=== PATIENT | female | born 1960 | race Caucasian/White ===

== ENCOUNTER 2016-05-28 11:29 | Inpatient (IN) | payer OTHER ==
[~2016-05-28] VITALS: Ht 167.6 cm; Wt 100.2 kg
--- NOTE | ~2016-05-28 | EKG ---
[address] [place] [address] ELECTROCARDIOGRAM REPORT Name: YASH THOMAS [id number] Admission: 05/28/16 Attend Phys: Discharge: Date of : 56 Report #: [id number] THIS REPORT FOR: //name// [facility] ED Test Date: 2016-05-28 Test Time: 11:48:13 Pat Name: YASH THOMAS Department: Room: Gender: F Bilingual Customer Service: Ok GALLARDO : 1960 Requested By: Sea Tomlinson Order Number: [id number] MD: Melecio Lezama Measurements Intervals [place] Rate: 79 P: 46 [place]: 163 QRS: -3 QRSD: 117 T: 31 QT: 439 QTc: 504 Interpretive Statements Sinus rhythm Left ventricular hypertrophy Electronically Signed On 05-28-2016 13:40:55 CDT by Melecio Lezama [email or web address] <ELECTRONICALLY SIGNED> By: Melecio Lezama MD 05/28/16 1340 1148 [id number] Melecio Lezama MD /EPI
--- NOTE | ~2016-05-28 | HC ---
[facility] [place] [address] [place] [address] CONSULTATION Name: WILLIAMYASH Room #: 541-P ADM IN M.R.#: [id number] Admission: 05/28/16 Attend Phys: Mikel Jenkins DO Discharge: Date of : 56 Report #: [id number] THIS REPORT FOR: //name// CC: FAM unknown Mikel Jenkins DO HISTORY OF PRESENT ILLNESS: The patient is a 55-year-old female who reported increasing symptoms of nausea, vomiting, diarrhea and abdominal pain beginning earlier this morning. She does report fevers and chills. She is actually afebrile here. She is shaking at this time. She also complains of diffuse abdominal pain. She denies any blood in her stools or hematemesis. She denies any chest pain or shortness of breath currently. She underwent an EGD and colonoscopy by my partner Dr. Dilan Hooper in December of last year, both of which were normal. A CT scan of the abdomen and pelvis was performed today through the Emergency Room, which was unremarkable. No acute abnormalities were noted. She does have an elevated white count of 15,000. Her weight has been stable. ALLERGIES: No known drug allergies. MEDICATIONS: Amlodipine. PAST MEDICAL HISTORY: History of CVA with 3 TIAs reportedly hypertension, history of hepatitis C. SOCIAL HISTORY: She denies any tobacco or alcohol use. FAMILY HISTORY: Negative for colon cancer or inflammatory bowel disease. REVIEW OF SYSTEMS: As per HPI. PHYSICAL EXAMINATION: VITAL SIGNS: Temperature is 97.9, pulse 88, blood pressure 168/90, respiratory rate is 17. GENERAL: She is alert and oriented x 3 in no acute distress, although she is shaking somewhat. It appears that she may be chewing at this point. HEENT: Sclerae nonicteric. Oropharynx clear. NECK: Supple without lymphadenopathy. CARDIOVASCULAR: Regular rate and rhythm. CHEST: Clear to auscultation anteriorly bilaterally. ABDOMEN: Soft. She is mildly tender diffusely. Nondistended, normoactive bowel sounds. EXTREMITIES: No cyanosis, clubbing or edema. LABORATORY DATA: Sodium 142, potassium 3.0, chloride 106, bicarbonate 24, BUN 10, creatinine 0.8, glucose 136, AST is 13, lipase 63, total bilirubin 0.3, [address] [address] CONSULTATION Name: YASH THOMAS Room #: 1-[facility] IN .R.#: [id number] Admission: 05/28/16 Attend Phys: Mikel Jenkins DO Discharge: Date of : 56 Report #: [id number] alkaline phosphatase 75, ALT is 12, albumin 3.6, troponin less than 0.04. WBC is 15.7, hemoglobin is 13.4, platelet count is 271. ASSESSMENT AND PLAN: 1. Nausea, vomiting, diarrhea and abdominal pain. She does have a mild elevation in her white count. This may be an infectious gastroenteritis. Was sent out for stool studies next. If the patient began having fever, would recommend starting antibiotics. Otherwise, agree with current regimen of PPI therapy and Bentyl, which was helpful back in December as well as supportive care including pain meds and antinausea medications. Her CAT scan was normal. Her endoscopies, which was less than 6 months ago were normal at that time. 2. Possible history of hepatitis C, currently liver function tests are normal. Thank you for allowing me to participate in her care. By: [id number] Lemuel Leyva MD /nt
[~2016-05-28 11:29] MED LIST: AMLODIPINE BESY10 MG PO; BENTYL 10 MG CA10 M1 PO; CIPROFLOXACIN500 M1 PO; DIAZEPAM; LABETALOL; NORCO 5-325 TA1 EACH PO; PHENERGAN 25 MG25 M1 PO; PHENERGAN50 MG RC; POTASSIUM20 PO; PROMS25 WY RECTAL; PROTONIX 440 MG/VIA2 IV PUSH; PYRIDIUM200 MG PO; SLOW-MAG64 MG PO; ZOFRAN ODT4 MG PO; ZOLOFT
[2016-05-28 11:53] LABS: URINE BILIRUBIN NEGATIVE (Negative); URINE BLOOD 2+ (Negative); URINE COLOR YELLOW; URINE GLUCOSE-RANDOM* NEGATIVE (Negative); URINE KETONES NEGATIVE (Negative); URINE NITRITE NEGATIVE (Negative); URINE PROTEIN (DIPSTICK) TRACE (Negative); URINE UROBILINOGEN 0.2 E.U./dl (0.2-1.0)
[2016-05-28 12:01] LABS: BACTERIA 1-9 Few /HPF (None Seen); CASTS None Seen /LPF (None Seen); CRYSTALS None Seen /LPF (None Seen); SQUAMOUS 0-3 Few /LPF (0-3); URINE WBC 0-5 Rare /HPF (0-5)
[2016-05-28 12:58] LABS: ABSOLUTE NEUTROPHILS 12.2 thou/uL (1.4-8.2); BASOPHILS 0.5 % (0.0-2.0); HEMATOCRIT 40.3 % (37.0-47.0); HEMOGLOBIN 13.4 gm/dL (12.0-15.0); LYMPHOCYTES 15.3 % (24.0-44.0); MCH 29.5 pg (26.0-34.0); MCHC 33.3 g/dL (28.0-37.0); MCV 88.7 fL (80.0-100.0); MONOCYTES 6.6 % (1.0-8.0); PLATELET COUNT 271 thou/uL (150-400); POLYS 77.6 % (36.0-66.0); RBC 4.54 mil/uL (4.20-5.00); RDW 15.3 % (10.5-14.5); WBC 15.7 thou/uL (4.0-11.0)
[2016-05-28 13:00] LABS: MANUAL DIFF NO
[2016-05-28 13:09] LABS: ANION GAP 12 mmol/L (7-16); BUN 10 mg/dL (7-18); CALCIUM 8.7 mg/dL (8.5-10.1); CHLORIDE 106 mmol/L (98-107); CO2 24 mmol/L (21-32); CREATININE 0.8 mg/dL (0.6-1.3); GLUCOSE 136 mg/dL (70-99); SODIUM 142 mmol/L (136-145)
[2016-05-28 13:15] LABS: ALBUMIN 3.6 g/dL (3.4-5.0); ALKALINE PHOSPHATASE 75 U/L (46-116); DIRECT BILIRUBIN < 0.1 mg/dL (<0.1-0.3); SGOT 13 U/L (15-37); SGPT 12 U/L (30-65); TOTAL BILIRUBIN 0.3 mg/dL (<0.1-1.0); TOTAL PROTEIN 7.7 g/dL (6.4-8.2); TROPONIN-I < 0.04 ng/mL (<0.04-0.07)
[2016-05-28 15:08] VITALS: BP 168/98
[2016-05-28 16:30] VITALS: BP 176/97
[2016-05-28 20:45] VITALS: BP 181/108
[2016-05-29 04:48] LABS: ABSOLUTE NEUTROPHILS 12.6 thou/uL (1.4-8.2); BASOPHILS 0.6 % (0.0-2.0); EOSINOPHILS 0.1 % (0.0-3.0); HEMATOCRIT 43.5 % (37.0-47.0); HEMOGLOBIN 14.5 gm/dL (12.0-15.0); LYMPHOCYTES 20.8 % (24.0-44.0); MCH 29.3 pg (26.0-34.0); MCHC 33.4 g/dL (28.0-37.0); MCV 87.6 fL (80.0-100.0); MONOCYTES 5.7 % (1.0-8.0); PLATELET COUNT 302 thou/uL (150-400); POLYS 72.8 % (36.0-66.0); RBC 4.96 mil/uL (4.20-5.00); RDW 15.7 % (10.5-14.5); WBC 17.3 thou/uL (4.0-11.0)
[2016-05-29 04:50] LABS: MANUAL DIFF NO
[2016-05-29 05:26] LABS: CALCIUM 9.4 mg/dL (8.5-10.1)
[2016-05-29 07:25] VITALS: BP 155/106
[2016-05-29 17:00] VITALS: BP 151/108
[2016-05-29 21:06] VITALS: BP 126/82
[2016-05-30 05:05] LABS: BASOPHILS 0.4 % (0.0-2.0); EOSINOPHILS 0.1 % (0.0-3.0); HEMATOCRIT 43.4 % (37.0-47.0); HEMOGLOBIN 14.5 gm/dL (12.0-15.0); LYMPHOCYTES 26.2 % (24.0-44.0); MCH 29.4 pg (26.0-34.0); MCHC 33.5 g/dL (28.0-37.0); MCV 87.8 fL (80.0-100.0); MONOCYTES 8.9 % (1.0-8.0); PLATELET COUNT 273 thou/uL (150-400); POLYS 64.4 % (36.0-66.0); RBC 4.94 mil/uL (4.20-5.00); RDW 15.5 % (10.5-14.5); WBC 12.5 thou/uL (4.0-11.0)
[2016-05-30 05:10] LABS: MANUAL DIFF NO
[2016-05-30 08:34] VITALS: BP 130/86
[2016-05-30 14:52] VITALS: BP 128/85
[2016-05-30 20:00] VITALS: BP 136/100
[2016-05-31 04:00] VITALS: BP 137/95
[2016-05-31 05:58] LABS: HEMATOCRIT 41.2 % (37.0-47.0); HEMOGLOBIN 13.7 gm/dL (12.0-15.0); MCH 29.6 pg (26.0-34.0); MCHC 33.3 g/dL (28.0-37.0); MCV 88.7 fL (80.0-100.0); RBC 4.65 mil/uL (4.20-5.00); RDW 15.4 % (10.5-14.5); WBC 9.7 thou/uL (4.0-11.0)
[2016-05-31 06:13] LABS: ALBUMIN 3.2 g/dL (3.4-5.0); CALCIUM 8.6 mg/dL (8.5-10.1); PHOSPHORUS 3.3 mg/dL (2.5-4.9); POTASSIUM 3.5 mmol/L (3.5-5.1)
[2016-05-31 08:00] VITALS: BP 154/94
[2016-05-31] MEDS ORDERED: CIPRO500 MG PO (10:36)
[2016-05-31] MEDS ORDERED: FLAGYL500 MG PO (10:36)
[2016-05-31] MEDS ORDERED: LORTAB 5-325 M1 EACH PO (10:41)
[2016-05-31] MEDS ORDERED: MIRALAX17 GM PO (14:52)
[2016-05-31 14:53] VITALS: BP 154/94
== END 2016-05-31 16:46 | disposition home or self-care (01) | DRG 872 ==
LOC: ER 11:29 → EROBS 14:36 → 4N 14:36 → 5S 15:10 → 4N 05-30 13:50
PROVIDERS: Family Medicine; Hospitalist; Internal Medicine; Nurse Practitioner
PROC: 02HV33Z Insertion of Infusion Device into Superior Vena Cava, Percutaneous Approach (ICD-10-PCS; principal; 2016-05-29)
PROC: B5181ZA Fluoroscopy of Superior Vena Cava using Low Osmolar Contrast, Guidance (ICD-10-PCS; principal; 2016-05-29)
DX: A41.9 Sepsis, unspecified organism (principal); A08.4 Viral intestinal infection, unspecified; I10 Essential (primary) hypertension; F12.90 Cannabis use, unspecified, uncomplicated; D72.829 Elevated white blood cell count, unspecified; B19.20 Unspecified viral hepatitis C without hepatic coma; R31.9 Hematuria, unspecified; Z86.73 Personal history of transient ischemic attack (TIA), and cerebral infarction without residual deficits
CPT/HCPCS: 10086; 10091; 27001

== ENCOUNTER 2016-10-12 15:53 | Inpatient (IN) | payer OTHER ==
[~2016-10-12] VITALS: Ht 167.6 cm; Wt 103.6 kg
--- NOTE | ~2016-10-12 | HC ---
[facility] [place] [address] [place] [address] CONSULTATION Name: YASH THOMAS Siddharth Room #: 455-P [facility] IN .R.#: [id number] Admission: 10/12/16 Attend Phys: Nish Preston Discharge: Date of : 56 Report #: [id number] THIS REPORT FOR: //name// CC: FAM unknown Nish Preston MD DATE OF SERVICE: 10/13/2016 PATIENT OF: Dr. Preston. CHIEF COMPLAINT: This is a very pleasant 56-year-old -[place] female who is well known to us from previous evaluations. We were asked to evaluate the patient for left lower quadrant pain that radiates around into her back associated with nausea, vomiting, diarrhea, chills, and sweats. The patient states that her symptoms began on Tuesday. She had just gone home from the hospital last week and was being treated for a possible diverticulitis and was doing fine for about a week and then her symptoms of left lower quadrant pain returned. PAST MEDICAL HISTORY: Significant for hepatitis C that has been partially treated in the past, hypertension, cerebrovascular accident, transient ischemic attacks, rheumatoid arthritis, colitis, hyperlipidemia, and depression. PAST SURGICAL HISTORY: Significant for an appendectomy and a cholecystectomy. ALLERGIES: No known drug allergies. MEDICATIONS: Prior to this admission include the following: Aspirin, Lipitor, multiple vitamins, Protonix, Phenergan, Zoloft. SOCIAL HISTORY: She smokes about 2 cigarettes per day. She does not drink alcohol. She does smoke marijuana. FAMILY HISTORY: Negative for colon polyps, colon cancer, Crohn's disease and ulcerative colitis. REVIEW OF SYSTEMS: She denies any dysphagia or odynophagia, but she does have gastroesophageal reflux symptoms. She has no history of a hiatal hernia or peptic ulcer disease. Her weight has been stable. Her appetite was generally good until she got sick with this again. She denies any hematemesis, hematochezia or melena. She denies constipation at this time. She has had some diarrhea prior to admission. She complains of pain in the left lower quadrant that radiates around into her mid back. PHYSICAL EXAMINATION: [facility] [address] [place] [address] CONSULTATION Name: WILLIAMYASH Room #: 455-P [facility] IN ..#: [id number] Admission: 10/12/16 Attend Phys: Nish Preston Discharge: Date of : 56 Report #: [id number] GENERAL: Reveals a well-developed, well-nourished, somewhat obese, 56-year-old female in no apparent distress at the time of the examination. She is awake, alert, oriented times 4 and cooperative and pleasant to converse with. VITAL SIGNS: Show a blood pressure of 108/73, temperature is 98.8, pulse 77, respirations are 18. Oxygen saturation is 97% on room air. HEENT: She is normocephalic, atraumatic and anicteric. HEART: Rate and rhythm are regular with a normal S1 and S2. LUNGS: Clear bilaterally. ABDOMEN: Soft, bowel sounds present in all 4 quadrants. There is no palpable organomegaly or mass, although she does not tolerate deep palpation very well. She has some voluntary guarding, but no rebound tenderness. IMAGING DATA: CT scan of the abdomen did not reveal any etiology of her pain. There was no evidence of any acute diverticulitis or colitis. No bowel wall thickening was seen. The appendix is absent. There was some diverticulosis noted, but without any inflammatory changes or obstruction. SIGNIFICANT LABORATORY DATA: Her white count on admission was 12.4 and it came down to 9.9 the next day. Hemoglobin, hematocrit, platelets all are within normal limits. IMPRESSION: 1. Left lower quadrant pain, radiating around into her lower back and midline, probable diverticulitis, but we need to exclude urinary tract infection as well as urolithiasis. 2. Fevers and chills. 3. History of urolithiasis. 4. History of partially treated hepatitis C. She is supposed to start taking soon as an outpatient. 5. Gastroesophageal reflux. 6. Hypertension. 7. History of acute cerebrovascular accident and transient ischemic attack. RECOMMENDATIONS: My recommendations are as follows. 1. I agree with Cipro and the Flagyl. The patient feels a bit better, but is still chilling and having sweating. She has no appetite whatsoever. 2. Proton pump inhibitors for gastroesophageal reflux. 3. EGD and colonoscopy was done last year and did not reveal any abnormalities. If she recovers uneventfully on Cipro and Flagyl, I do not think she needs another colonoscopy at this point. However, if she does not recover fully, then we need to consider repeat colonoscopy. [address] [address] CONSULTATION Name: YASH THOMAS Room #: 455-P [facility] IN M.R.#: [id number] Admission: 10/12/16 Attend Phys: Nish Preston Discharge: Date of : 56 Report #: [id number] Thank you very much once again for allowing me to participate in her care, Dr. Preston. <ELECTRONICALLY SIGNED> By: Milagro Hooper DO 10/14/16 0747 06 0104 Milagro Hooper DO /nt
[~2016-10-12 15:53] MED LIST changes: +CIPRO500 MG PO; +FLAGYL500 MG PO; +LORTAB 5-325 M1 EACH PO; +MIRALAX17 GM PO
[2016-10-12 15:54] VITALS: BP 195/100
[2016-10-12 16:45] LABS: ABSOLUTE NEUTROPHILS 8.8 thou/uL (1.4-8.2); BASOPHILS 1.2 % (0.0-2.0); EOSINOPHILS 0.3 % (0.0-3.0); HEMATOCRIT 41.7 % (37.0-47.0); HEMOGLOBIN 13.7 gm/dL (12.0-15.0); LYMPHOCYTES 22.6 % (24.0-44.0); MCH 29.2 pg (26.0-34.0); MCHC 32.9 g/dL (28.0-37.0); MCV 88.7 fL (80.0-100.0); MONOCYTES 5.4 % (1.0-8.0); PLATELET COUNT 301 thou/uL (150-400); POLYS 70.5 % (36.0-66.0); RDW 15.4 % (10.5-14.5); WBC 12.4 thou/uL (4.0-11.0)
[2016-10-12 16:48] LABS: CREATININE 0.9 mg/dL (0.6-1.0); POTASSIUM 3.7 mmol/L (3.5-5.1)
[2016-10-12 16:51] LABS: MANUAL DIFF NO
[2016-10-12 16:54] LABS: ALBUMIN 3.8 g/dL (3.4-5.0); TOTAL BILIRUBIN 0.3 mg/dL (<0.1-1.0); TOTAL PROTEIN 8.9 g/dL (6.4-8.2)
[2016-10-12 21:29] VITALS: BP 131/85
[2016-10-12 21:30] VITALS: BP 127/68
[2016-10-12] MEDS ORDERED: ASPIR 8181 MG PO (22:25)
[2016-10-12] MEDS ORDERED: MULTIVITAMINS1 EAC7 PO (22:32)
[2016-10-12] MEDS ORDERED: ZOLOFT50 MG PO (22:32)
[2016-10-12] MEDS ORDERED: ATORVASTATIN CA40 MG PO (22:32)
[2016-10-12] MEDS ORDERED: PROTONIX40 M1 PO (22:32)
[2016-10-12 23:10] VITALS: BP 138/87
[2016-10-13 04:05] VITALS: BP 104/53
[2016-10-13 06:05] LABS: HEMOGLOBIN 12.6 gm/dL (12.0-15.0); MCH 29.4 pg (26.0-34.0); MCHC 33.1 g/dL (28.0-37.0); MCV 88.8 fL (80.0-100.0); RBC 4.28 mil/uL (4.20-5.00); RDW 15.5 % (10.5-14.5); WBC 9.9 thou/uL (4.0-11.0)
[2016-10-13 06:19] LABS: CALCIUM 8.3 mg/dL (8.5-10.1); CREATININE 0.9 mg/dL (0.6-1.0)
[2016-10-13 08:23] VITALS: BP 108/73
[2016-10-13 10:00] LABS: URINE BILIRUBIN NEGATIVE (Negative); URINE BLOOD 3+ (Negative); URINE COLOR YELLOW; URINE GLUCOSE-RANDOM* NEGATIVE (Negative); URINE KETONES NEGATIVE (Negative); URINE LEUKOCYTES-REFLEX TRACE (Negative); URINE PROTEIN (DIPSTICK) 2+ (Negative); URINE SPECIFIC GRAVITY >= 1.030 (1.003-1.035)
[2016-10-13 10:12] LABS: CASTS None Seen /LPF (None Seen); CRYSTALS None Seen /LPF (None Seen); SQUAMOUS >10 Many /LPF (0-3); URINE RBC 3-10 Few /HPF (0-2); URINE WBC-REFLEX 0-5 Rare /HPF (0-5)
[2016-10-13 11:51] VITALS: BP 126/86
[2016-10-13 15:38] VITALS: BP 114/74
[2016-10-13 19:28] VITALS: BP 133/88
[2016-10-13 23:37] VITALS: BP 121/88
[2016-10-14 04:05] VITALS: BP 139/94
[2016-10-14 06:06] LABS: ALBUMIN 3.1 g/dL (3.4-5.0); CALCIUM 8.6 mg/dL (8.5-10.1); CREATININE 0.9 mg/dL (0.6-1.0); POTASSIUM 3.2 mmol/L (3.5-5.1); TOTAL BILIRUBIN 0.4 mg/dL (<0.1-1.0); TOTAL PROTEIN 7.4 g/dL (6.4-8.2)
[2016-10-14 07:46] VITALS: BP 137/80
[2016-10-14] MEDS ORDERED: FLAGYL500 MG PO (10:58)
[2016-10-14] MEDS ORDERED: CIPRO250 M1 PO (10:58)
[2016-10-14] MEDS ORDERED: PERCOCET PO (10:59)
[2016-10-14] MEDS ORDERED: AMLODIPINE BESY10 MG PO (10:59)
[2016-10-14] MEDS ORDERED: METOPROLOL SUCC25 M1 PO (10:59)
[2016-10-14 11:49] VITALS: BP 137/80
[2016-10-14 11:52] VITALS: BP 165/103
== END 2016-10-14 14:39 | disposition home or self-care (01) | DRG 872 ==
LOC: ER 15:53 → 4W 19:51 → EROBS 19:51 → 4W 21:31
PROVIDERS: Emergency Medicine; Hospitalist; Nurse Practitioner Family
DX: A41.9 Sepsis, unspecified organism (principal); K57.92 Diverticulitis of intestine, part unspecified, without perforation or abscess without bleeding; I16.0 Hypertensive urgency; I10 Essential (primary) hypertension; M06.9 Rheumatoid arthritis, unspecified; E78.5 Hyperlipidemia, unspecified; F32.9 Major depressive disorder, single episode, unspecified; F17.210 Nicotine dependence, cigarettes, uncomplicated; K21.9 Gastro-esophageal reflux disease without esophagitis; D72.829 Elevated white blood cell count, unspecified; B19.20 Unspecified viral hepatitis C without hepatic coma; Z79.899 Other long term (current) drug therapy; Z86.73 Personal history of transient ischemic attack (TIA), and cerebral infarction without residual deficits; Z86.19 Personal history of other infectious and parasitic diseases; Z90.49 Acquired absence of other specified parts of digestive tract; Z79.82 Long term (current) use of aspirin; Z87.442 Personal history of urinary calculi
CPT/HCPCS: 10045

== ENCOUNTER 2017-04-14 14:04 | Emergency (ER) | payer OTHER ==
[~2017-04-14] VITALS: Ht 167.6 cm; Wt 104.3 kg
--- NOTE | ~2017-04-14 | EKG ---
[place] [address] [address] [place] [address] ELECTROCARDIOGRAM REPORT Name: YASH THOMAS [facility] [id number] Admission: 04/14/17 Attend Phys: Discharge: Date of : 56 Report #: [id number] THIS REPORT FOR: //name// [facility] ED Test Date: 2017-04-14 Test Time: 15:06:00 Pat Name: YASH THOMAS Department: Room: Gender: F Director Of Ancillary Services: [place] : 1960 Requested By: Contreras Bennett Order Number: [id number] MD: Melecio Lezama Measurements Intervals [place] Rate: 88 P: 46 [place]: 160 QRS: -11 QRSD: 106 T: 29 QT: 387 QTc: 469 Interpretive Statements Sinus rhythm Probable left atrial enlargement Baseline wander in lead(s) I,III,aVL Compared to ECG 05/28/2016 11:48:13 Left ventricular hypertrophy no longer present Electronically Signed On 04-14-2017 16:31:07 [employer] by Melecio Lezama [email or web address] <ELECTRONICALLY SIGNED> By: Melecio Lezama MD 04/14/17 1631 1506 1506 Melecio Lezama MD /JENNIFER
[~2017-04-14 14:04] MED LIST changes: +ASPIR 8181 MG PO; +ATORVASTATIN CA40 MG PO; +CIPRO250 M1 PO; +METOPROLOL SUCC25 M1 PO; +MULTIVITAMINS1 EAC7 PO; +PERCOCET PO; +PROTONIX40 M1 PO; +ZOLOFT50 MG PO
[2017-04-14 15:12] LABS: HEMATOCRIT 40.3 % (37.0-47.0); HEMOGLOBIN 13.6 gm/dL (12.0-15.0); MCH 29.1 pg (26.0-34.0); MCHC 33.7 g/dL (28.0-37.0); MCV 86.5 fL (80.0-100.0); RBC 4.66 mil/uL (4.20-5.00); RDW 15.7 % (10.5-14.5); WBC 4.3 thou/uL (4.0-11.0)
[2017-04-14 15:18] LABS: CALCIUM 8.6 mg/dL (8.5-10.1)
[2017-04-14 15:20] LABS: POTASSIUM 2.9 mmol/L (3.5-5.1)
[2017-04-14 15:25] LABS: ALBUMIN 3.4 g/dL (3.4-5.0); TOTAL BILIRUBIN 0.3 mg/dL (<0.1-1.0); TOTAL PROTEIN 7.7 g/dL (6.4-8.2)
[2017-04-14] MEDS ORDERED: ZPAK PO (16:25)
[2017-04-14 19:00] VITALS: BP 148/98
[2017-04-14] MEDS ORDERED: PROMETHAZINE/C118 ML PO (19:01)
[2017-04-14] MEDS ORDERED: OSELB75 PO (19:01)
== END 2017-04-14 19:11 | disposition home or self-care (01) ==
LOC: ER 14:04
PROVIDERS: Emergency Medicine
DX: J98.8 Other specified respiratory disorders (principal); I10 Essential (primary) hypertension; M19.90 Unspecified osteoarthritis, unspecified site; Z90.49 Acquired absence of other specified parts of digestive tract